=== PATIENT | female | born 1940 | race Caucasian/White ===

== ENCOUNTER → 2018-06-12 | Outpatient (CLI) | payer MEDICARE ==
[~2018-06-12] MED LIST: AMLO5 PO; AMOX500 PO; FISH1000; HYDACE10B PO; HYDACE5 PO; HYDURE500 PO; IBUP400 PO; LEVSOD88 PO; LOSA25 PO; NAPR220; NEOPOLHCSU OT; Prilosec Otc20 MG PO; UNKNOWN BP MEDS
== END | disposition home or self-care (01) ==
LOC: LAB SHORT 13:48 → LAB SRC 13:48
DX: N10 Acute pyelonephritis (principal)
CPT/HCPCS: 87077; 87086; 87186

== ENCOUNTER → 2018-06-19 | Outpatient (CLI) | payer MEDICARE ==
[2018-06-19 11:44] LABS: Source, Urine Clean Catch
[2018-06-19 13:32] LABS: Appearance, Urine Clear (Clear); Blood, Urine 1+ (Neg); Color, Urine Yellow (P-Yellow); Glucose Qualitative, Urine Neg (Neg); Ketones, Urine 1+ (Neg); Leukocyte Esterase, Urine 1+ (Neg); Nitrite, Urine Neg (Neg); Protein, Urine 3+ (Neg); Urobilinogen, Urine 1+ (Normal)
[2018-06-19 13:39] LABS: Bilirubin, Urine 1+ (Neg)
[2018-06-19 13:40] LABS: Bacteria Few /hpf; Squamous Epithelial Cells Few /hpf (Few)
== END ==
LOC: LAB SRC 11:43 → LAB SHORT 11:43
PROVIDERS: Nurse Practitioner Family
DX: N10 Acute pyelonephritis (principal)
CPT/HCPCS: 81001

== ENCOUNTER → 2019-01-13 | Outpatient (CLI) | payer MEDICARE | END | disposition home or self-care (01) | LOC: LAB SHORT 14:47 → LAB SRC 14:47 | DX: J20.9 Acute bronchitis, unspecified (principal); J31.0 Chronic rhinitis; R05 Cough | CPT/HCPCS: 87798 ==

== ENCOUNTER → 2020-06-24 | Outpatient (CLI) | payer MEDICARE ==
[2020-06-24 18:00] LABS: Source, Urine Clean Catch
[2020-06-24 18:45] LABS: Appearance, Urine Hazy (Clear); Bilirubin, Urine Neg (Neg); Blood, Urine 4+ (Neg); Color, Urine Yellow (P-Yellow); Glucose Qualitative, Urine Neg (Neg); Ketones, Urine Neg (Neg); Leukocyte Esterase, Urine 3+ (Neg); Nitrite, Urine Pos (Neg); Protein, Urine 2+ (Neg); Specific Gravity, Urine 1.015 (1.003-1.022); Urobilinogen, Urine NORM (Normal)
[2020-06-24 18:53] LABS: White Blood Cells, Urine 50-100 /hpf (0-5)
[2020-06-24 18:54] LABS: Bacteria Mod /hpf; Squamous Epithelial Cells Few /hpf (Few)
== END | disposition home or self-care (01) ==
LOC: LAB 17:58 → LAB SHORT 17:58
PROVIDERS: Family Medicine
DX: R30.0 Dysuria (principal)
CPT/HCPCS: 81001; 87077; 87086; 87186

== ENCOUNTER → 2020-09-11 | Outpatient (CLI) | payer MEDICARE ==
[2020-09-19 12:50] LABS: Stool Occult Bld Immuno 1 Negative (NEGATIVE)
== END | disposition home or self-care (01) ==
LOC: LAB SRC 07:37 → LAB SHORT 07:37
PROVIDERS: Nurse Practitioner Family
DX: D50.9 Iron deficiency anemia, unspecified (principal)
CPT/HCPCS: G0328

== ENCOUNTER → 2021-05-25 | Outpatient (CLI) | payer MEDICARE | END | disposition home or self-care (01) | LOC: LAB 18:57 | DX: D50.9 Iron deficiency anemia, unspecified (principal) ==

== ENCOUNTER 2021-10-18 05:54 | Day surgery (SDC) | payer MEDICARE ==
[~2021-10-18] VITALS: Ht 170.2 cm; Wt 76.0 kg
[~2021-10-18 05:54] MED LIST changes: +CILOSTAZOL50 M1 PO; +DICLOFENAC SOD100 GM; +FURO20 PO; +GABA100 PO; +MELO7.5 PO; +POTCHL20ER PO
[2021-10-18] MEDS ORDERED: LOSA25 PO (07:25)
--- NOTE | 2021-10-18 09:20 | NUR ---
PT TO RECOVERY ROOM POST PROCEDURE. PT AWAKE AND CONVERSING APPROPRIATELY, DENIES PAIN POST PROCEDURE. MONITOR SB 50'S, B/P 154/70, AFEBRILE, SPO2 94% RA. R GROIN NO SWELLING/HEMATOMA, TEGADERM DRSG INTACT, ANGIO SEAL DEPLOYED, PULSES: RLE DP DOP, PT 2+, LLE 2+ X 2. PT TAKING SIPS OF WATER WITHOUT ISSUE.
--- NOTE | 2021-10-18 10:35 | NUR ---
PT HOB ELEVATED, SITE REMAINS UNCHANGED. PT TAKING BREAKFAST WITHOUT ISSUE.
--- NOTE | 2021-10-18 11:45 | NUR ---
PT AMB TO BATHROOM, GAIT STEADY, SITE UNCHANGED WITH ACTIVITY.
--- NOTE | 2021-10-18 11:56 | NUR ---
PT DRESSED WITH ASSISTANCE, SITE UNCHANGED, IV REMOVED-CANNULA INTACT. PT AND DAUGHTER RECEIVED DISCHARGE INSTRUCTIONS, MED LIST AND AFTER CARE INSTRUCTIONS; VERBALIZED GOOD UNDERSTANDING. PT LEFT FACILITY VIA W/C, CONDITION STABLE.
== END 2021-10-18 12:06 | disposition home or self-care (01) ==
LOC: MHTC 05:54
DX: I70.213 Atherosclerosis of native arteries of extremities with intermittent claudication, bilateral legs (principal); Z20.822 Contact with and (suspected) exposure to COVID-19
CPT/HCPCS: 37228; 75625; 75716; 75774; 76937; 99152; 99153; C1725; C1760; C1769; C1887; C1894; J1644; J2250; J3010; J7030; Q9967

== ENCOUNTER → 2021-12-20 | Outpatient (CLI) | payer MEDICARE ==
[2021-12-20 15:37] LABS: Source, Urine Clean Catch
[2021-12-20 19:07] LABS: Appearance, Urine Clear (Clear); Bilirubin, Urine Neg (Neg); Blood, Urine 1+ (Neg); Color, Urine Yellow (P-Yellow); Glucose Qualitative, Urine Neg (Neg); Ketones, Urine Neg (Neg); Leukocyte Esterase, Urine 1+ (Neg); Nitrite, Urine Neg (Neg); Protein, Urine 2+ (Neg); Urobilinogen, Urine NORM (Normal)
[2021-12-20 19:59] LABS: Bacteria Mod /hpf; Red Blood Cells, Urine 0-2 /hpf (0-2); Squamous Epithelial Cells Few /hpf (Few); White Blood Cells, Urine 0-2 /hpf (0-5)
[2021-12-20 20:00] LABS: Transitional Epithelial Cells Few /hpf (0-Rare)
== END | disposition home or self-care (01) ==
LOC: LAB SHORT 15:35 → LAB 15:35
PROVIDERS: Nurse Practitioner Family
DX: R30.0 Dysuria (principal)
CPT/HCPCS: 81001; 87086

== ENCOUNTER 2022-02-26 08:10 | Emergency (ER) | payer MEDICARE ==
[~2022-02-26] VITALS: Ht 165.1 cm; Wt 68.0 kg
[2022-02-26 08:34] LABS: Hematocrit 35.6 % (33.0-51.0); Hemoglobin 12.7 g/dL (11.5-16.0); Mean Corpuscular HGB 40.8 pg (26.0-34.0); Mean Corpuscular HGB Conc 35.7 g/dL (31.5-36.5); Mean Corpuscular Volume 115 fL (80-100); Mean Platelet Volume 10.2 fL (9.1-12.4); RDW Standard Deviation 53.9 fL (35.1-46.3); Red Blood Cell Count 3.11 M/mm3 (3.80-5.20)
[2022-02-26 08:52] LABS: White Blood Cell Count 11.67 K/mm3 (4.00-11.30)
[2022-02-26 08:54] LABS: Platelet Count 1477 K/mm3 (150-400)
[2022-02-26 08:55] LABS: Alanine Aminotransfer (ALT/SGP 31 U/L (12-78); Albumin/Globulin Ratio 1.1 (0.8-1.8); Alk Phos 100 U/L (50-136); Anion Gap 8 mmol/L (6-16); Aspartate Aminotrans (AST/SGOT 30 U/L (12-37); Bilirubin, Total 0.8 mg/dL (0.1-1.0); Blood Urea Nitrogen 20 mg/dL (8-24); Bun/Creatinine Ratio 23.8 (12.0-20.0); CO2, Blood 24 mmol/L (21-32); Calcium, Blood 9.6 mg/dL (8.5-10.1); Chloride, Blood 97 mmol/L (98-108); Creatinine, Blood 0.84 mg/dL (0.40-1.00); Globulin, Blood 3.6 g/dL (2.2-4.0); Glomerular Filtration Rate >60 (60-); Glucose, Blood 131 mg/dL (70-99); Potassium, Blood 4.2 mmol/L (3.5-5.5); Sodium, Blood 129 mmol/L (136-145); Total Protein, Blood 7.6 g/dL (6.4-8.2)
[2022-02-26 08:58] LABS: BASOPHILS ABSOLUTE MAN 0.11 K/mm3 (0.00-0.23); BASOPHILS PERCENT MAN 1 % (0-2); EOSINOPHILS ABSOLUTE MAN 0.23 K/mm3 (0.00-0.68); EOSINOPHILS PERCENT MAN 2 % (0-6); LYMPHOCYTES ABSOLUTE MAN 4.08 K/mm3 (0.84-5.20); LYMPHOCYTES PERCENT MAN 35 % (21-46); MONOCYTES ABSOLUTE MAN 0.58 K/mm3 (0.16-1.47); MONOCYTES PERCENT MAN 5 % (4-13); NEUTROPHILS ABSOLUTE MAN 6.65 K/mm3 (1.96-9.15); SEG NEUTROPHILS PERCENT MAN 57 % (41-73); TOTAL CELLS COUNTED 100
[2022-02-26] MEDS ORDERED: CLOP75 PO (10:42)
== END 2022-02-26 12:13 | disposition home or self-care (01) ==
LOC: ER 08:10
PROVIDERS: Emergency Medicine
DX: I63.9 Cerebral infarction, unspecified (principal); R29.810 Facial weakness; R47.1 Dysarthria and anarthria; I65.22 Occlusion and stenosis of left carotid artery; D69.3 Immune thrombocytopenic purpura; I10 Essential (primary) hypertension; E03.9 Hypothyroidism, unspecified; Z88.1 Allergy status to other antibiotic agents; Z88.8 Allergy status to other drugs, medicaments and biological substances
CPT/HCPCS: 70450; 70496; 70498; 80053; 82947; 85025; 93005; 93010; A9270; Q9967

== ENCOUNTER 2022-03-03 01:34 | Emergency (ER) | payer MEDICARE ==
[~2022-03-03] VITALS: Ht 170.2 cm; Wt 74.8 kg
[~2022-03-03 01:34] MED LIST changes: +CLOP75 PO
== END 2022-03-03 05:39 | disposition home or self-care (01) ==
LOC: ER 01:34
DX: R04.0 Epistaxis (principal); I10 Essential (primary) hypertension; Z79.899 Other long term (current) drug therapy; Z88.8 Allergy status to other drugs, medicaments and biological substances
CPT/HCPCS: 99283

== ENCOUNTER 2022-12-24 12:33 | Inpatient (IN) | payer MEDICARE ==
[~2022-12-24] VITALS: Ht 170.2 cm; Wt 69.7 kg
[2022-12-24] MEDS ORDERED: JAKAFI10 MG PO (13:09)
[2022-12-24 13:28] LABS: BASOPHILS ABSOLUTE AUTO 0.05 K/mm3 (0.00-0.23); BASOPHILS PERCENT AUTO 1 % (0-2); EOSINOPHILS ABSOLUTE AUTO 0.02 K/mm3 (0.00-0.68); EOSINOPHILS PERCENT AUTO 0 % (0-6); Hematocrit 28.8 % (33.0-51.0); Hemoglobin 10.4 g/dL (11.5-16.0); IMMATURE GRAN ABSOLUTE AUTO 0.03 K/mm3 (0.00-0.10); IMMATURE GRAN PERCENT AUTO 1 % (0-1); LYMPHOCYTES ABSOLUTE AUTO 1.38 K/mm3 (0.84-5.20); LYMPHOCYTES PERCENT AUTO 25 % (21-46); MONOCYTES ABSOLUTE AUTO 0.61 K/mm3 (0.16-1.47); MONOCYTES PERCENT AUTO 11 % (4-13); Mean Corpuscular HGB 49.1 pg (26.0-34.0); Mean Corpuscular HGB Conc 36.1 g/dL (31.5-36.5); Mean Corpuscular Volume 136 fL (80-100); Mean Platelet Volume 10.7 fL (9.1-12.4); NEUTROPHILS PERCENT AUTO 63 % (41-73); RDW Coefficient Variation 13.6 % (11.7-14.2); RDW Standard Deviation 68.4 fL (35.1-46.3); Red Blood Cell Count 2.12 M/mm3 (3.80-5.20); White Blood Cell Count 5.59 K/mm3 (4.00-11.30)
[2022-12-24 13:38] LABS: Platelet Count 1143 K/mm3 (150-400)
[2022-12-24 13:53] LABS: Albumin, Blood 4.2 g/dL (3.4-5.0); Albumin/Globulin Ratio 1.3 (0.8-1.8); Bilirubin, Total 0.5 mg/dL (0.1-1.0); Bun/Creatinine Ratio 28.2 (12.0-20.0); Calcium, Blood 9.4 mg/dL (8.5-10.1); Creatinine, Blood 0.82 mg/dL (0.40-1.00); Globulin, Blood 3.3 g/dL (2.2-4.0); Potassium, Blood 4.3 mmol/L (3.5-5.5); Total Protein, Blood 7.5 g/dL (6.4-8.2)
[2022-12-24 14:18] LABS: International Normalized Ratio 1.04; Prothrombin Time Results 10.9 Sec (9.7-11.5)
[2022-12-24 17:22] LABS: Anti-Xa UFH, PHA Monitoring <0.10 IU/mL
[2022-12-24 18:09] LABS: CHOL/HDL RATIO 2.8; Cholesterol 152 mg/dL (50-200); HDL Cholesterol 54 mg/dL (>39); LDL/HDL RATIO 1.5; Low Density Lipoprotein Chol 80 mg/dL (0-110); Triglycerides 90 mg/dL (30-160); Very Low Density Lipoprot Chol 18 mg/dL (6-32)
--- NOTE | 2022-12-24 20:30 | NUR ---
PATIENT ARRIVED TO PCU 1 VIA GURNEY FROM ED, WITH SON AND DAUGHTER AT SIDE. PATIENT ABLE TO TRANSFER FROM GURNEY TO BED WITH MOD ASSIST TO SIT UP. RIGHT LEG AND ARM SLOW AND SLIGHTLY WEAKER THAN LEFT. RIGHT FACIAL DROOP SEEN. SPEECH SLURRED AND AT TIMES HAS DIFFICULTY WITH FINDING WORDS AND IS VERY AWARE AND FRUSTRATED THAT THE CORRECT WORDS ARE DIFFICULT TO FIND. PATIENT ABLE TO ASSIST HER DAUGHTER WITH ADMIT HISTORY. HEPARIN DRIP STARTED, AND PATIENT ABLE TO IVAN PO WITH NO SIGN OF DIFFICULTY.
[2022-12-25 03:43] LABS: BASOPHILS ABSOLUTE AUTO 0.03 K/mm3 (0.00-0.23); BASOPHILS PERCENT AUTO 1 % (0-2); EOSINOPHILS ABSOLUTE AUTO 0.02 K/mm3 (0.00-0.68); EOSINOPHILS PERCENT AUTO 0 % (0-6); Hematocrit 24.2 % (33.0-51.0); Hemoglobin 8.5 g/dL (11.5-16.0); IMMATURE GRAN ABSOLUTE AUTO 0.03 K/mm3 (0.00-0.10); IMMATURE GRAN PERCENT AUTO 1 % (0-1); LYMPHOCYTES ABSOLUTE AUTO 1.29 K/mm3 (0.84-5.20); LYMPHOCYTES PERCENT AUTO 23 % (21-46); MONOCYTES ABSOLUTE AUTO 0.99 K/mm3 (0.16-1.47); MONOCYTES PERCENT AUTO 17 % (4-13); Mean Corpuscular HGB 47.8 pg (26.0-34.0); Mean Corpuscular HGB Conc 35.1 g/dL (31.5-36.5); Mean Corpuscular Volume 136 fL (80-100); Mean Platelet Volume 10.6 fL (9.1-12.4); NEUTROPHILS ABSOLUTE AUTO 3.36 K/mm3 (1.96-9.15); NEUTROPHILS PERCENT AUTO 59 % (41-73); Platelet Count 931 K/mm3 (150-400); RDW Standard Deviation 68.4 fL (35.1-46.3); Red Blood Cell Count 1.78 M/mm3 (3.80-5.20); White Blood Cell Count 5.72 K/mm3 (4.00-11.30)
[2022-12-25] MEDS ORDERED: MELO7.5 PO (04:11)
[2022-12-25 04:23] LABS: Bun/Creatinine Ratio 21.6 (12.0-20.0); Calcium, Blood 8.6 mg/dL (8.5-10.1); Creatinine, Blood 0.69 mg/dL (0.40-1.00); Potassium, Blood 3.6 mmol/L (3.5-5.5)
--- NOTE | 2022-12-25 06:33 | NUR ---
SUMMARY PATIENT CONTINUES TO HAVE RIGHT FACIAL DROOP WITH SOME EXPRESSIVE APHASIA, AND RIGHT SIDE WEAKNESS WITH SLOWER MOVEMENT TO THE RIGHT ARM AND AT TIMES POOR COORDINATION. ABLE TO GET UP TO BSC WITH 1 PERSON ASSIST T/O NIGHT. PATIENT C/O BACK PAIN MEDICATED TWICE WITH TYLENOL, BACK PAIN CONTINUES. PATIENT VERBALIZED FEELING ANXIOUS THIS MORNING AND HAVING DIFFICULTY LAYING STILL. WARM BLANKET PLACED TO BACK. HEPARIN DRIP INFUSING ADJUSTED PER PHARMACY.
--- NOTE | 2022-12-25 07:41 | NUR ---
Pt is alert, oriented and appropriate answers (albeit slow to find her words) to questions, and cooperative. Nancy at the bedside. Dr. Hedrick was here. New order for ativan for MRI as needed. Thuy Harper, speech therapist at the bedside at this time.
--- NOTE | 2022-12-25 09:48 | NUR ---
Pt appears to be napping at this time. Grandson and his father are at the bedside at this time.
[2022-12-25] MEDS ORDERED: PANT20 PO (11:09)
[2022-12-25] MEDS ORDERED: GABA300 PO (11:11)
[2022-12-25] MEDS ORDERED: EUTHYROX88 MCG PO (11:12)
[2022-12-25] MEDS ORDERED: IBUP400 PO (11:13)
[2022-12-25] MEDS ORDERED: ACET325 PO (11:14)
--- NOTE | 2022-12-25 12:37 | NUR ---
Dr. Walters here to see the patient.
--- NOTE | 2022-12-25 13:18 | NUR ---
Pt sleepy after MRI. IV LFA is occluded and tender at the site. IV heparin infusing at the LAC. LFA IV dc'd. Two attempts to restart IV unsuccessful. another RN to try.
--- NOTE | 2022-12-25 14:22 | NUR ---
Pt is visiting with family at bedside.
--- NOTE | 2022-12-25 15:33 | NUR ---
Upo receiving a referral for spiritual care, I visit patient. Patient is resting and velma, Phyllis and Nephpaola Mckeon are bedside. Patient awakens at the sound of talking and once hears my title reaches out her hand. She tells me of her struggles and asks for prayer, which I gladly provide. Family then thank me for comingwhich my cue to allow them to have a more private time. Patient responds well and shows sings of an elevated mood. I will continue to remain available to patient and family.
--- NOTE | 2022-12-25 15:59 | NUR ---
Assisted up to [facility] to void. she is more tired and weaker than she was this morning.
--- NOTE | 2022-12-25 18:35 | NUR ---
Pt appears pretty tired. She ate dinner, and was given scheduled med. Multiple family members have been at the bedside throughout the day. Heparin gtt is now off per orders.
--- NOTE | 2022-12-26 04:36 | NUR ---
SHIFT SUMMARY A/OX3, PLEASANT AND COOPERATIVE WITH CARE. R. SIDED FACIAL DROOP AND R. SIDED WEAKNESS NOTED. 1P ASSIST TO BSC. TELE SR 60S-70S. BP STABLE; DENIES CHEST PAIN PRESSURE. SPO2 >92% ON RA. VSS, NO ACUTE CHANGES AT THIS TIME. BED IN LOWEST POSITION WITH CALL LIGHT IN REACH. WILL CONTINUE TO MONITOR AND REPORT TO ONCOMING RN.
[2022-12-26 07:33] LABS: Hematocrit 26.3 % (33.0-51.0); Hemoglobin 9.3 g/dL (11.5-16.0); Mean Corpuscular HGB 47.4 pg (26.0-34.0); Mean Corpuscular HGB Conc 35.4 g/dL (31.5-36.5); Mean Corpuscular Volume 134 fL (80-100); Mean Platelet Volume 10.6 fL (9.1-12.4); RDW Coefficient Variation 13.2 % (11.7-14.2); RDW Standard Deviation 65.1 fL (35.1-46.3); Red Blood Cell Count 1.96 M/mm3 (3.80-5.20); White Blood Cell Count 5.87 K/mm3 (4.00-11.30)
--- NOTE | 2022-12-26 07:42 | NUR ---
Pt is awake, alert and oriented. PERRL, right facial droop noted. Speech is clear and coherent and appropriate. She no longer has the significant delay in her verbal responses. Right lateral tongue deviation, and asymmetry of the palate rising noted. Hand security system technician are mostly equal; nearly imperceptible weakness of the right. She is able to raise both arms above her head symmetrically, and using the walker to walk into the bathroom without apparent difficulty. Slight shuffle of the right foot noted, improved when the pt is reminded to raise the foot when walking. She is sitting up in a chair now, daughter at the bedside and speech therapist here to work with pt.
[2022-12-26 08:20] LABS: Platelet Count 1005 K/mm3 (150-400)
[2022-12-26] MEDS ORDERED: ELIQUIS5 M2 PO (10:29)
== END 2022-12-26 11:50 | disposition home health service (06) | DRG 65 ==
LOC: ER 12:33 → PCU 12:34
PROVIDERS: Internal Medicine Hematology & Oncology; Physician Assistant; Student in an Organized Health Care Education/Training Program; ADMIT Family Medicine
DX: I63.9 Cerebral infarction, unspecified (principal); C34.11 Malignant neoplasm of upper lobe, right bronchus or lung; E87.1 Hypo-osmolality and hyponatremia; R29.701 NIHSS score 1; Z66 Do not resuscitate; Z28.21 Immunization not carried out because of patient refusal; D47.3 Essential (hemorrhagic) thrombocythemia; R29.810 Facial weakness; R47.81 Slurred speech; I10 Essential (primary) hypertension; E03.9 Hypothyroidism, unspecified; G62.9 Polyneuropathy, unspecified; M19.072 Primary osteoarthritis, left ankle and foot; M19.071 Primary osteoarthritis, right ankle and foot; G83.21 Monoplegia of upper limb affecting right dominant side; K21.9 Gastro-esophageal reflux disease without esophagitis; D64.9 Anemia, unspecified; R20.0 Anesthesia of skin; I65.22 Occlusion and stenosis of left carotid artery; Z86.73 Personal history of transient ischemic attack (TIA), and cerebral infarction without residual deficits; Z90.49 Acquired absence of other specified parts of digestive tract; Z90.10 Acquired absence of unspecified breast and nipple; Z90.721 Acquired absence of ovaries, unilateral; Z90.710 Acquired absence of both cervix and uterus; Z87.891 Personal history of nicotine dependence; Z88.1 Allergy status to other antibiotic agents; Z88.8 Allergy status to other drugs, medicaments and biological substances; Z79.02 Long term (current) use of antithrombotics/antiplatelets; Z79.890 Hormone replacement therapy; Z79.899 Other long term (current) drug therapy
CPT/HCPCS: 36415; 70450; 70496; 70498; 70551; 80048; 80053; 80061; 82947; 83735; 85025; 85027; 85520; 85610; 85730; 92526; 92610; 93005; 93010; 93306; 96360-59; 96374; 96376; 97110; 97112; 97116; 97116-CQ; 97162; 97166; 97530; 97530-CQ; 97535; 99285-25; A9270; G0378; J1644; J2060; J7030; Q9967

== ENCOUNTER 2023-01-03 14:09 | Observation (INO) | payer MEDICARE ==
[~2023-01-03] VITALS: Ht 170.2 cm; Wt 69.9 kg
[~2023-01-03 14:09] MED LIST changes: +ACET325 PO; +ELIQUIS5 M2 PO; +EUTHYROX88 MCG PO; +GABA300 PO; +JAKAFI10 MG PO; +PANT20 PO
[2023-01-03 14:41] LABS: BASOPHILS ABSOLUTE AUTO 0.04 K/mm3 (0.00-0.23); BASOPHILS PERCENT AUTO 0 % (0-2); EOSINOPHILS PERCENT AUTO 0 % (0-6); Hematocrit 29.3 % (33.0-51.0); Hemoglobin 10.6 g/dL (11.5-16.0); IMMATURE GRAN ABSOLUTE AUTO 0.36 K/mm3 (0.00-0.10); IMMATURE GRAN PERCENT AUTO 3 % (0-1); LYMPHOCYTES PERCENT AUTO 12 % (21-46); MONOCYTES ABSOLUTE AUTO 1.31 K/mm3 (0.16-1.47); MONOCYTES PERCENT AUTO 11 % (4-13); Mean Corpuscular HGB 48.2 pg (26.0-34.0); Mean Corpuscular HGB Conc 36.2 g/dL (31.5-36.5); Mean Corpuscular Volume 133 fL (80-100); Mean Platelet Volume 10.8 fL (9.1-12.4); NEUTROPHILS ABSOLUTE AUTO 8.52 K/mm3 (1.96-9.15); NEUTROPHILS PERCENT AUTO 73 % (41-73); NRBC ABSOLUTE 0.05 K/mm3 (0.00-0.02); NRBC Auto 0.4 /100 WBC (0.0-0.2); Platelet Count 821 K/mm3 (150-400); RDW Coefficient Variation 13.2 % (11.7-14.2); RDW Standard Deviation 65.3 fL (35.1-46.3); White Blood Cell Count 11.63 K/mm3 (4.00-11.30)
[2023-01-03 15:36] LABS: Albumin, Blood 4.5 g/dL (3.4-5.0); Albumin/Globulin Ratio 1.1 (0.8-1.8); Bilirubin, Total 0.4 mg/dL (0.1-1.0); Bun/Creatinine Ratio 17.9 (12.0-20.0); Calcium, Blood 10.2 mg/dL (8.5-10.1); Creatinine, Blood 1.12 mg/dL (0.40-1.00); Potassium, Blood 4.7 mmol/L (3.5-5.5); Total Protein, Blood 8.5 g/dL (6.4-8.2)
--- NOTE | 2023-01-03 17:02 | NUR ---
ED Palliative Care Consult Spoke with Dr Farmer and discussed case. Pt to the ED with stroke symptoms. Based off conversation that took place with family goals of care conversation may be beneficial. Pt resting on gurney and is minimally responsive. Pt does track with her head and says high to her daughter. Daughter Sara and Pt's grandson at bedside. José Manuel Sara reports Pt lives with her and her . Sara reports Pt made a staement prior to stroke stating "I'm done, I want to go home and ". Sara reports Pt was not wanting to come to the hospital. Engaged in therapeutic conversation regarding considering comfort care and hospice. Sara reports being familiar with hospice philosophy as her dad was on hospice in 2017. Educated on comfort care philosopy. Sara reports being in agreement with hospice and would like Pt placed on comfort care until hospice can be arranged. She reports she will need hospital bed in order to care for Pt appropriately. Discussed hospice agencies to choose from. Sara reports having no preference and would like agency that is available the soonest. Called and spoke with intake staff at [facility] who reports having opening on Saturday. SHANKAR Garcia calls other hospice agencies to determine availability. Family would like Pt to be admitted on comfort care until hospice can be arranged. Palliative Care will remain available
--- NOTE | 2023-01-04 04:56 | NUR ---
SHIFT SUMMARY 82 YR F ADMITTED ON 01/03/23 FOR ACUTE STROKE. DNR. NO ACUTE CHANGES THIS SHIFT. PT IS NON VERBAL AT THIS POINT AND APPEARS TO ONLY BE ABLE TO MOVE HER LEFT ARM. SHE CAME IN WITH TWO IV'S IN HER RIGHT ARM AND SHE PULLED ONE OUT. IV FLUIDS ARE INFUSING IN THE OTHER IV (RIGHT AC). SHE IS CURRENTLY ON NPO STATUS WITH ORDERS FOR A BEDSIDE SWALLOW STUDY, HOWEVER, THIS NURSE WAS UNABLE TO GET PT TO OPEN HER MOUTH SO SWALLOW STUDY WAS NOT COMPLETED. THE ORDER IS STILL ACTIVE. NO PO MEDS WERE ABLE TO BE ADMINISTERED. PT'S FAMILY WAS AT BEDSIDE UPON ADMISSION TO THIS UNIT BUT WENT HOME FOR THE NIGHT. THE PLAN IS FOR PT TO DISCHARGE ON HOSPICE. CM AND FAMILY ARE WORKING ON THIS. PT APPEARS TO BE RESTING COMFORTABLY WITH NO OBVIOUS SIGNS OF PAIN OR DISTRESS.
[2023-01-04 05:28] LABS: BASOPHILS ABSOLUTE AUTO 0.05 K/mm3 (0.00-0.23); BASOPHILS PERCENT AUTO 0 % (0-2); EOSINOPHILS ABSOLUTE AUTO 0.01 K/mm3 (0.00-0.68); EOSINOPHILS PERCENT AUTO 0 % (0-6); Hematocrit 28.1 % (33.0-51.0); Hemoglobin 9.9 g/dL (11.5-16.0); IMMATURE GRAN ABSOLUTE AUTO 0.18 K/mm3 (0.00-0.10); IMMATURE GRAN PERCENT AUTO 1 % (0-1); LYMPHOCYTES ABSOLUTE AUTO 1.02 K/mm3 (0.84-5.20); LYMPHOCYTES PERCENT AUTO 8 % (21-46); MONOCYTES ABSOLUTE AUTO 2.14 K/mm3 (0.16-1.47); MONOCYTES PERCENT AUTO 17 % (4-13); Mean Corpuscular HGB 46.9 pg (26.0-34.0); Mean Corpuscular HGB Conc 35.2 g/dL (31.5-36.5); Mean Corpuscular Volume 133 fL (80-100); Mean Platelet Volume 10.6 fL (9.1-12.4); NEUTROPHILS ABSOLUTE AUTO 9.07 K/mm3 (1.96-9.15); NEUTROPHILS PERCENT AUTO 73 % (41-73); NRBC ABSOLUTE 0.03 K/mm3 (0.00-0.02); NRBC Auto 0.2 /100 WBC (0.0-0.2); Platelet Count 680 K/mm3 (150-400); RDW Coefficient Variation 13.3 % (11.7-14.2); RDW Standard Deviation 66.1 fL (35.1-46.3); Red Blood Cell Count 2.11 M/mm3 (3.80-5.20); White Blood Cell Count 12.47 K/mm3 (4.00-11.30)
[2023-01-04 06:10] LABS: Albumin, Blood 3.9 g/dL (3.4-5.0); Albumin/Globulin Ratio 1.2 (0.8-1.8); Bilirubin, Total 0.5 mg/dL (0.1-1.0); Bun/Creatinine Ratio 18.3 (12.0-20.0); Calcium, Blood 9.2 mg/dL (8.5-10.1); Creatinine, Blood 0.82 mg/dL (0.40-1.00); Globulin, Blood 3.3 g/dL (2.2-4.0); Magnesium, Blood 2.3 mg/dL (1.6-2.4); Potassium, Blood 3.6 mmol/L (3.5-5.5); Total Protein, Blood 7.2 g/dL (6.4-8.2)
--- NOTE | 2023-01-04 10:21 | NUR ---
Spoke with Dr Sood and discussed case. Placed comfort care order, comfort care order set, and D/C maintenance medications per V/O from Dr Sood. Continued Lasix for comfort. Pt resting in bed with her eyes closed. Pt appears comfortable with no S/S of distress at this time. Family at bedside. Offered therapeutic listening and answered questions. Family expresses appreciation and reports no concerns at this time. Palliative Care will remain available
--- NOTE | 2023-01-04 15:12 | NUR ---
Spiritual Care Visit Pt. is on Comfort Care and mostly not repsonsive. Family are present and welcome my visit. Facilitate a life review with Pts. daughter taking the lead in the discussion. The family are people of [place], and display both grief and eternal hope for the Pt. [place] for the Pt. and family. A follow up discussion addressed questions of EOL protocol. Pts. family are considering their home choices, though the family verbalized Pts. spouse had been taken to [facility]. They agreed to let nursing staff know at EOL. Family verbalized gratitude for the spiritual care visit.
--- NOTE | 2023-01-04 16:38 | NUR ---
PT REPOSITIONED AT THIS TIME. FAMILY IS AT THE BEDSIDE
--- NOTE | 2023-01-05 06:03 | NUR ---
CARLOS PATIENTS ORIENTATION LEVEL, DOES MAKE EYE CONTACT, FOLLOWS SOME DIRECTION LIKE TURING FROM SIDE TO SIDE, AND CAN ANSWER WITH YES OR NO. INC, BREIFS CHANGED MULTIPLE TIMES ALONG WITH POSITION CHANGES. PAIN TREATED PER MAR X2. NO OTHER ISSUES TO REPORT.
[2023-01-05] MEDS ORDERED: Ativan1 MG PO (10:43)
[2023-01-05] MEDS ORDERED: HALO.5 PO (10:43)
[2023-01-05] MEDS ORDERED: MORP20L SL (10:44)
[2023-01-05] MEDS ORDERED: HYOS.125 PO (10:45)
--- NOTE | 2023-01-05 13:39 | NUR ---
DISCHARGE SUMMARY PATIENT IS A COMFORT CARE PATIENT. PATIENT HAS HAD NO ACUTE EVENTS THIS SHIFT. PATIENT HAS BEEN SURROUNDED BY FAMILY THIS SHIFT. PATIENT IS BEING DISCHARGED HOME ON HOSPICE. PATIENT HAS NOT REQUIRED MEDICATING THIS SHIFT. FAMILY WAS READ AND UNDERSTOOD DISCHARGE INSTRUCTIONS. PATIENTS GRANDDAUGHTER WAS GIVEN HARD SCRIPTS AND MEDICATIONS WERE FAXED TO [facility]. PATIENT WAS PICKED UP BY [facility].
== END 2023-01-05 13:10 | disposition hospice, home (50) ==
LOC: ER 14:09 → MEDS 17:03 → ER 17:03 → MEDS 18:28
PROVIDERS: Emergency Medicine; ADMIT Student in an Organized Health Care Education/Training Program
DX: I63.9 Cerebral infarction, unspecified (principal); R41.82 Altered mental status, unspecified; D47.3 Essential (hemorrhagic) thrombocythemia; I10 Essential (primary) hypertension; Z66 Do not resuscitate; Z87.891 Personal history of nicotine dependence; Z88.8 Allergy status to other drugs, medicaments and biological substances
CPT/HCPCS: 36415; 70450; 70496; 80053; 83735; 85025; 93005; 93010; 99285-25; A9270; G0378; J7030; Q9967